=== PATIENT | male | born 1985 | race Caucasian/White ===

== ENCOUNTER 2020-02-08 07:27 | Emergency (ER) | payer OTHER, SELFPAY ==
[~2020-02-08] VITALS: Ht 170.2 cm; Wt 68.0 kg
[~2020-02-08 07:27] MED LIST: AMLODIPINE BESYL5 M2 PO; ASPIR 8181 MG PO; ATENOLOL25 MG PO; CLEOCIN HCL300 MG PO; CLONIDINE HCL0.2 MG PO; COLACE100 MG PO; ENALAPRIL MALEA20 MG PO; GABAPENTIN100 M2 PO; GLUCOTROL10 MG PO; HYDROCHLOROTHIA25 MG PO; LAC PO; LIPI20 PO; METFORMIN HCL1000 MG PO; NITROSTAT0.4 MG SL; NORCO1 TA2 PO
[2020-02-08 07:29] VITALS: Ht 170.2 cm; Wt 68.0 kg
[2020-02-08 08:34] VITALS: BP 133/96
== END 2020-02-08 09:32 | disposition home or self-care (01) ==
LOC: ED 07:27
DX: S83.92XA Sprain of unspecified site of left knee, initial encounter (principal); S93.402A Sprain of unspecified ligament of left ankle, initial encounter; F17.210 Nicotine dependence, cigarettes, uncomplicated; Z20.828 Contact with and (suspected) exposure to other viral communicable diseases; W10.9XXA Fall (on) (from) unspecified stairs and steps, initial encounter; Y93.89 Activity, other specified; Y92.89 Other specified places as the place of occurrence of the external cause; Y99.8 Other external cause status
CPT/HCPCS: J1885; U0003